=== PATIENT | female | born 1985 | race Caucasian/White ===

== ENCOUNTER → 2020-04-19 08:43 | Outpatient (BNVA) | payer BC, SELFPAY | PROVIDERS: Family Provider Family Medicine; Visit Provider Nurse Practitioner Family | DX: Z02.89 Encounter for other administrative examinations (principal) | CPT/HCPCS: 80061; 82951 ==

== ENCOUNTER → 2022-05-28 16:04 | Outpatient (BNVA) | payer OTHER, SELFPAY | PROVIDERS: Family Provider Family Medicine; PCP Nurse Practitioner Family; Visit Provider Nurse Practitioner Family | DX: Z13.1 Encounter for screening for diabetes mellitus (principal); E78.5 Hyperlipidemia, unspecified; Z00.00 Encounter for general adult medical examination without abnormal findings | CPT/HCPCS: 80053; 80061 ==

== ENCOUNTER 2022-12-05 10:41 | Outpatient (CLI) | payer OTHER, SELFPAY ==
--- NOTE | 2022-12-05 10:50 | XR_ITS ---
WS: [id number] EXAMINATION: XR chest 2V* [id number] REASON FOR EXAM: R05.9 - Cough, unspecified COMPARISON: None available. ORDER DATE: 12/05/2022 11:01 AM FINDINGS: The lungs are clear of infiltrate. The cardiac and mediastinal outlines are unremarkable. There ar e no significant pleural effusions . No significant abnormalities are noted in the spine or remainder of the bony thorax. XR/XR chest 2V* [id number] IMPRESSION: NO ACUTE PULMONARY CHANGE.
== END 2022-12-05 10:42 | disposition home or self-care (01) ==
LOC: RAD 10:50
PROVIDERS: PCP Nurse Practitioner Family; Visit Provider Nurse Practitioner Family
DX: R05.9 Cough, unspecified (principal); R53.83 Other fatigue; R03.0 Elevated blood-pressure reading, without diagnosis of hypertension
CPT/HCPCS: 71046; 80053; 80061; 84439; 84443; 84481; 85025

== ENCOUNTER 2023-01-06 13:14 | Outpatient (CLI) | payer OTHER, SELFPAY ==
--- NOTE | 2023-01-06 13:15 | US_ITS ---
WS: [id number] THYROID ULTRASOUND HISTORY: Abnormal blood work. COMPARISON: None available. Right lobe: 0.9 cm x 1.3 cm x 4.6 cm (w x ap x l). Volume: 2.7 cm3. Normal size and echotexture. No significant are dominant nodules are present. Left lobe: 1.4 cm x 1.2 cm x 4.6 cm (w x ap x l). Volume: 3.9 cm3. Normal size and echotexture. No significant or dominant nodules are present. Isthmus: 0.3 cm. Solid nodule with a few cystic components measures 3.0 x 0.9 cm. US/US thyroid [id number] IMPRESSION: 1. Predominantly solid isthmus nodule. Nodule measures 2.0 x 0.9 cm. Due to it s size consider fine-needle aspiration by ultrasound. 2. Otherwise negative.
== END 2023-01-06 13:15 | disposition home or self-care (01) ==
LOC: RAD 13:18
PROVIDERS: PCP Nurse Practitioner Family; Visit Provider Nurse Practitioner Family
DX: R79.89 Other specified abnormal findings of blood chemistry (principal)
CPT/HCPCS: 76536

== ENCOUNTER 2023-07-31 23:29 | Emergency (ER) | payer OTHER, MEDICAID, SELFPAY ==
[2023-07-31 23:38] VITALS: BP 160/117; PULSE 93; RESP 16; TEMP 36.9; O2SAT 100
--- NOTE | 2023-07-31 23:46 | ED_ITS ---
Documented by User: [email or web address] Loredo 08/01/23 00:59 HPI - Back Pain/Injury General: Chief Complaint: Back Pain/Injury Stated Complaint: side/back pain Time Seen by Provider: 07/31/23 23:30 History of Present Illness: Patient is a 37-year-old female with no significant past medical history who presents to the emergency department for evaluation of right flank pain. Patient reports that her symptoms started this morning upon awakening and has continued to progress since onset. Patient reports that her flank pain radiates into her abdomen. She currently rates her pain as a 6 out of 10 in severity that she describes as a aching sensation. She denies any trauma or event that could have elicited her symptoms. Patient states she is currently on her menstrual cycle. She denies history of nephrolithiasis. She denies fever, chills, dysuria, hematuria, constipation, diarrhea, nausea, vomiting, chest pain, shortness of breath, palpitations, lightheadedness, dizziness, cough, congestion, or any other associated symptoms. No other complaints at this time. Associated symptoms: Reports abdominal pain; Deny chills, dysuria, fever(s), hematuria, nausea or vomiting Review of Systems General: Reports: 10 or more systems reviewed and unremarkable except in HPI and below Const: Denies: fever(s), chills or body aches Eyes: Denies: change in vision, blurry vision, eye discharge or eye redness ENMT: Reports: odynophagia; Denies: throat pain, ear or mastoid pain, ear discharge, nasal discharge or nasal congestion Card: Denies: chest pain or palpitations Resp: Denies: dyspnea, productive cough, non-productive cough, wheezing or stridor GI: Reports: abdominal pain; Denies: nausea, vomiting, diarrhea or constipation : Reports: flank pain; Denies: dysuria or hematuria Musc: Denies: neck pain or extremity pain Skin/Breast: Denies: rash Neuro: Denies: headache(s) or numbness in extremities PFSH ED PFSH: Surgical History Hx of section Social History Smoking and tobacco/nicotine status: current every day tobacco/nicotine user ci garettes Packs smoked per day: 0.5 Alcohol intake: never Substance/Drug Use: never Adopted: No Caregiver/support person: No Lives independently: Yes Household members: spouse and children Housing: House Marital status: Current occupational status: employed Do you think of yourself as: Straight/Heterosexual Current gender identity: Female Female Reproductive History: Date of last menstrual period: 07/31/23 Physical Exam Const: COMMON NORMALS: no acute distress, average body habitus, patient oriented x3 and alert HENMT: COMMON NORMALS: normocephalic, atraumatic, moist oral mucous membranes and oropharynx normal HEAD & SCALP: normocephalic and atraumatic Eye: COMMON NORMALS: Equal, round and reactive pupils present, EOMs intact bilaterally and conjunctivae normal CONJUNCTIVA: Yes conjunctivae normal PUPIL: Yes Equal, round and reactive pupils present Neck/C-Spine: COMMON NORMALS: full ROM and no JVD Chest: COMMONS NORMALS: normal inspection of the chest Resp: COMMON NORMALS: normal respiratory effort, No retractions, No use of accessory muscles and clear to auscultation bilaterally AUSCULTATION: clear to auscultation bilaterally Cardio: COMMON NORMALS: no JVD, regular rate, regular rhythm, No gallops present (Cardio), No clicks present (Cardio), No murmurs present (Cardio) and No rub (Cardio) RATE: regular rate RHYTHM: regular rhythm GI: OTHER: Mild right upper quadrant tenderness noted to palpation. No McBurney's point tenderness, Rovsing sign, or peritoneal signs noted. No evidence of rebound tenderness. Normoactive bowel sounds in all 4 quadrants. : OTHER: Right CVA tenderness noted. Back/Pelvis: OTHER: No midline vertebral tenderness is noted to the thoracic or lumbar spine. No bony abnormalities or step-offs noted. Extremity: OTHER: Patient has full passive and active range of motion in the bilateral upper and lower extremities. Neuro: COMMON NORMALS: patient oriented x3 SENSORIUM/ORIENTATION: Yes alert OTHER: Sensation intact to the bilateral upper and lower extremities. Course Vital Signs: Vital signs: Vital Signs Temperature 98.4 F 07/31/23 23:38 Pulse Rate 63 08/01/23 01:00 Respiratory Rate 16 07/31/23 23:38 Blood Pressure 145/80 08/01/23 01:00 Pulse Oximetry 100 08/01/23 01:00 Oxygen Delivery Me thod Room Air 08/01/23 01:00 MDM - Back Pain/Injury Medical Decision Making Patient is a 37-year-old female with no significant past medical history who presents to the emergency department for evaluation of right flank pain. On physical examination patient is nontoxic and in no acute distress. Vital signs remained stable throughout the ED course. Patient is afebrile. CBC showed no evidence of leukocytosis. CMP and lipase unremarkable. CT of the abdomen and pelvis without contrast currently pending. Urinalysis currently pending. At this point time plan of care was passed over to my colleague Dr. Kuhn in the emergency department. Differential diagnosis includes but is not limited to pyelonephritis, acute cystitis, appendicitis, nephrolithiasis, cholecystitis, choledocholithiasis, ascending cholangitis Labs 07/31/23 23:55 07/31/23 23:55 Radiology Impressions Abdomen/Pelvis CT 07/31/23 23:53 IMPRESSION: 1. No bowel obstruction or inflammatory process associated with the bowel. 2. No free air or significant free fluid in the abdomen or pelvis. 3. The appendix images normally. 4. No hydronephrosis or renal calculus. No stone in the bladder. Phlebolith in the right pelvis Laboratory Results WBC 9.95 10^3/uL (3.29-11.43) 07/31/23 23:55 RBC 5.16 10^6/uL (3.85-5.65) 07/31/23 23:55 Hgb 15.20 g/dL (11.27-16.99) 07/31/23 23:55 Hct 44.4 % (36-47) 07/31/23 23:55 MCV 86.0 fl (85-98) 07/31/23 23:55 MCH 29.5 pg (27-33) 07/31/23 23:55 MCHC 34.2 g/dL (30-55) 07/31/23 23:55 RDW 12.3 % (12.1-15.1) 07/31/23 23:55 Plt Count 252 10^3/cmm (157-399) 07/31/23 23:55 MPV 10.6 fL (7.4-10.4) H 07/31/23 23:55 Neut % (Auto) 53.5 % 07/31/23 23:55 Lymph % (Auto) 39.8 % 07/31/23 23:55 [place] % (Auto) 4.5 % 07/31/23 23:55 Eos % (Auto) 1.5 % 07/31/23 23:55 Baso % (Auto) 0.5 % 07/31/23 23:55 Neut # (Auto) 5.32 10^3/uL (1.8-7.7) 07/31/23 23:55 Lymph # (Auto) 4.0 10^3/uL (0.8-4.8) 07/31/23 23:55 [place] # (Auto) 0.5 10^3/uL (0.2-0.9) 07/31/23 23:55 Eos # (Auto) 0.2 10^3/uL (0.0-0.8) 07/31/23 23:55 Baso # (Auto) 0.1 10^3/uL (0.0-0.1) 07/31/23 23:55 Nucleated RBC % (auto) 0 % 07/31/23 23:55 Nucleated RBCs # 0.0 /100WBC 07/31/23 23:55 Sodium 140 mmol/L (136-145) 07/31/23 23:55 Potassium 3.7 mmol/L (3.5-5.1) 07/31/23 23:55 Chloride 105 mmol/L (98-107) 07/31/23 23:55 Carbon Dioxide 24 mmol/L (22-29) 07/31/23 23:55 Anion Gap 14.7 (5-19) 07/31/23 23:55 BUN 12 mg/dL (6-20) 07/31/23 23:55 Creatinine 0.9 mg/dL (0.5-0.9) 07/31/23 23:55 GFR Calculation 70.8 mL/min (90-130) L 07/31/23 23:55 Glucose 108 mg/dL (65-115) 07/31/23 23:55 Calculated Osmolality 290 mOsm/kg (285-295) 07/31/23 23:55 Calcium 9.5 mg/dL (8.5-10.5) 07/31/23 23:55 Total Bilirubin 0.3 mg/dL (0.15-1.2) 07/31/23 23:55 AST 15 U/L (0-32) 07/31/23 23:55 ALT 14 U/L (0-33) 07/31/23 23:55 Alkaline Phosphatase 53 U/L (35-105) 07/31/23 23:55 Total Protein 7.6 g/dL (6.6-8.7) 07/31/23 23:55 Albumin 4.5 g/dL (3.5-5.2) 07/31/23 23:55 Globulin 3.1 g/dL (1.3-4.6) 07/31/23 23:55 Lipase 38 U/L (13-60) 07/31/23 23:55 HCG, Qual Negative (Negative) 07/31/23 23:40 Urine Color Yellow (Yellow) 08/01/23 00:00 Urine Appearance Clear (CLEAR) 08/01/23 00:00 Urine pH 7 (5-7) 08/01/23 00:00 Ur Specific [place] 1.000 (1.005-1.030) L 08/01/23 00:00 Urine Protein Neg (Negative) 08/01/23 00:00 Urine Glucose (UA) Norm (Normal) 08/01/23 00:00 Urine Ketones Negative (Negative) 08/01/23 00:00 Urine Blood 3+ (Negative) H 08/01/23 00:00 Urine Nitrate Negative (Negative) 08/01/23 00:00 Urine Bilirubin Neg (Negative) 08/01/23 00:00 Urine Urobilinogen Neg mg/dL (Negative) 08/01/23 00:00 Ur Leukocyte Esterase Negative (Negative) 08/01/23 00:00 Urine RBC None /hpf (0-2) 08/01/23 00:00 Urine WBC None /hpf (0-5) 08/01/23 00:00 Ur Squamous Epith Cells 0-4 /hpf (0-5) H 08/01/23 00:00 Amorphous Sediment Not Reportable 08/01/23 00:00 Urine Bacteria None /hpf (NONE) 08/01/23 00:00 XR interpretation done by ED provider, pending radiology final review Discharge Plan Discharge Patient Disposition: Home Clinical Impression: Renal colic Condition: Stable Prescriptions: New ketorolac 10 mg tablet 10 mg PO TID PRN (Reason: pain) Qty: 10 0RF ondansetron 4 mg film 4 mg PO DAILY PRN (Reason: nausea and vomiting) Qty: 10 0RF No Action albuterol sulfate 2.5 mg /3 mL (0.083 %) solution for nebulization 2.5 mg inhalation QID PRN (Reason: shortness of breath or wheezing) Qty: 180 0RF montelukast 10 mg tablet See Rx Instructions .ROUTE .COMPLEX Qty: 30 3RF Dose Instruction: TAKE 1 TABLET BY MOUTH DAILY Rx Instructions: TAKE 1 TABLET BY MOUTH DAILY lisinopril 5 mg tablet See Rx Instructions .ROUTE .COMPLEX Qty: 60 0RF Dose Instruction: TAKE 1 TABLET BY MOUTH TWICE DAILY Rx Instructions: TAKE 1 TABLET BY MOUTH TWICE DAILY Discharge Orders: Discharge ED (Routine); Ordered 08/01/23 Ordered By: Jose Kuhn Referrals: Randi Curtis, PROGRAMMING DEVELOPMENT PROJECT MANAGER [Primary Care Provider] - 1-3 days Patient Instructions: Renal Colic (ED), Abdominal Pain (ED), Opioid Safety, Pain Management Activity Restrictions/Additional Instructions: Your pain was most likely from a kidney stone that is passed. Pain should resolve rather quickly. Return for fever, vomiting liquids or medications, worsening pain despite treatment, other concerning symptoms. Coding Level of Care Code ED Ironworker Machine Operator for Chg Fwd Documented by User: Jose Kuhn DO 08/01/23 01:25 HPI - Back Pain/Injury General: Chief Complaint: Back Pain/Injury Stated Complaint: side/back pain Time Seen by Provider: 07/31/23 23:30 PFSH ED PFSH: Surgical History Hx of section Social History Smoking and tobacco/nicotine status: current every day tobacco/nicotine user cigarettes Packs smoked per day: 0.5 Alcohol intake: never Substance/Drug Use: never Adopted: No Caregiver/support person: No Lives independently: Yes Household members: spouse and children Housing: House Marital status: Current occupational status: employed Do you think of yourself as: Straight/Heterosexual Current gender identity: Female Course Vital Signs: Vital signs: Vital Signs Temperature 98.4 F 07/31/23 23:38 Pulse Rate 63 08/01/23 01:00 Respiratory Rate 16 07/31/23 23:38 Blood Pressure 145/80 08/01/23 01:00 Pulse Oximetry 100 08/01/23 01:00 Oxygen Delivery Me thod Room Air 08/01/23 01:00 MDM - Back Pain/Injury Medical Decision Making Patient is a 37-year-old female with no significant past medical history who presents to the emergency department for evaluation of right flank pain. On physical examination patient is nontoxic and in no acute distress. Vital signs remained stable throughout the ED course. Patient is afebrile. CBC showed no evidence of leukocytosis. CMP and lipase unremarkable. CT of the abdomen and pelvis without contrast currently pending. Urinalysis currently pending. At this point time plan of care was passed over to my colleague Dr. Kuhn in the emergency department. 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 I agree with his history, evaluation, and treatment. CBC is normal. BMP is normal. Urinalysis shows 3+ blood, but no RBCs on micro. CT shows no hydronephrosis. No definite stone in the bladder. The appendix is normal. This could be and likely is a passed stone given her pain distribution. She will be allowed discharge. Labs 07/31/23 23:55 07/31/23 23:55 Radiology Impressions Abdomen/Pelvis CT 07/31/23 23:53 IMPRESSION: 1. No bowel obstruction or inflammatory process associated with the bowel. 2. No free air or significant free fluid in the abdomen or pelvis. 3. The appendix images normally. 4. No hydronephrosis or renal calculus. No stone in the bladder. Phlebolith in the right pelvis Laboratory Results WBC 9.95 10^3/uL (3.29-11.43) 07/31/23 23:55 RBC 5.16 10^6/uL (3.85-5.65) 07/31/23 23:55 Hgb 15.20 g/dL (11.27-16.99) 07/31/23 23:55 Hct 44.4 % (36-47) 07/31/23 23:55 MCV 86.0 fl (85-98) 07/31/23 23:55 MCH 29.5 pg (27-33) 07/31/23 23:55 MCHC 34.2 g/dL (30-55) 07/31/23 23:55 RDW 12.3 % (12.1-15.1) 07/31/23 23:55 Plt Count 252 10^3/cmm (157-399) 07/31/23 23:55 MPV 10.6 fL (7.4-10.4) H 07/31/23 23:55 Neut % (Auto) 53.5 % 07/31/23 23:55 Lymph % (Auto) 39.8 % 07/31/23 23:55 [place] % (Auto) 4.5 % 07/31/23 23:55 Eos % (Auto) 1.5 % 07/31/23 23:55 Baso % (Auto) 0.5 % 07/31/23 23:55 Neut # (Auto) 5.32 10^3/uL (1.8-7.7) 07/31/23 23:55 Lymph # (Auto) 4.0 10^3/uL (0.8-4.8) 07/31/23 23:55 [place] # (Auto) 0.5 10^3/uL (0.2-0.9) 07/31/23 23:55 Eos # (Auto) 0.2 10^3/uL (0.0-0.8) 07/31/23 23:55 Baso # (Auto) 0.1 10^3/uL (0.0-0.1) 07/31/23 23:55 Nucleated RBC % (auto) 0 % 07/31/23 23:55 Nucleated RBCs # 0.0 /100WBC 07/31/23 23:55 Sodium 140 mmol/L (136-145) 07/31/23 23:55 Potassium 3.7 mmol/L (3.5-5.1) 07/31/23 23:55 Chloride 105 mmol/L (98-107) 07/31/23 23:55 Carbon Dioxide 24 mmol/L (22-29) 07/31/23 23:55 Anion Gap 14.7 (5-19) 07/31/23 23:55 BUN 12 mg/dL (6-20) 07/31/23 23:55 Creatinine 0.9 mg/dL (0.5-0.9) 07/31/23 23:55 GFR Calculation 70.8 mL/min (90-130) L 07/31/23 23:55 Glucose 108 mg/dL (65-115) 07/31/23 23:55 Calculated Osmolality 290 mOsm/kg (285-295) 07/31/23 23:55 Calcium 9.5 mg/dL (8.5-10.5) 07/31/23 23:55 Total Bilirubin 0.3 mg/dL (0.15-1.2) 07/31/23 23:55 AST 15 U/L (0-32) 07/31/23 23:55 ALT 14 U/L (0-33) 07/31/23 23:55 Alkaline Phosphatase 53 U/L (35-105) 07/31/23 23:55 Total Protein 7.6 g/dL (6.6-8.7) 07/31/23 23:55 Albumin 4.5 g/dL (3.5-5.2) 07/31/23 23:55 Globulin 3.1 g/dL (1.3-4.6) 07/31/23 23:55 Lipase 38 U/L (13-60) 07/31/23 23:55 HCG, Qual Negative (Negative) 07/31/23 23:40 Urine Color Yellow (Yellow) 08/01/23 00:00 Urine Appearance Clear (CLEAR) 08/01/23 00:00 Urine pH 7 (5-7) 08/01/23 00:00 Ur Specific [place] 1.000 (1.005-1.030) L 08/01/23 00:00 Urine Protein Neg (Negative) 08/01/23 00:00 Urine Glucose (UA) Norm (Normal) 08/01/23 00:00 Urine Ketones Negative (Negative) 08/01/23 00:00 Urine Blood 3+ (Negative) H 08/01/23 00:00 Urine Nitrate Negative (Negative) 08/01/23 00:00 Urine Bilirubin Neg (Negative) 08/01/23 00:00 Urine Urobilinogen Neg mg/dL (Negative) 08/01/23 00:00 Ur Leukocyte Esterase Negative (Negative) 08/01/23 00:00 Urine RBC None /hpf (0-2) 08/01/23 00:00 Urine WBC None /hpf (0-5) 08/01/23 00:00 Ur Squamous Epith Cells 0-4 /hpf (0-5) H 08/01/23 00:00 Amorphous Sediment Not Reportable 08/01/23 00:00 Urine Bacteria None /hpf (NONE) 08/01/23 00:00 Discharge Plan Discharge Patient Disposition: Home Clinical Impression: Renal colic Condition: Stable Prescriptions: New ketorolac 10 mg tablet 10 mg PO TID PRN (Reason: pain) Qty: 10 0RF ondansetron 4 mg film 4 mg PO DAILY PRN (Reason: nausea and vomiting) Qty: 10 0RF No Action albuterol sulfate 2.5 mg /3 mL (0.083 %) solution for nebulization 2.5 mg inhalation QID PRN (Reason: shortness of breath or wheezing) Qty: 180 0RF montelukast 10 mg tablet See Rx Instructions .ROUTE .COMPLEX Qty: 30 3RF Dose Instruction: TAKE 1 TABLET BY MOUTH DAILY Rx Instructions: TAKE 1 TABLET BY MOUTH DAILY lisinopril 5 mg tablet See Rx Instructions .ROUTE .COMPLEX Qty: 60 0RF Dose Instruction: TAKE 1 TABLET BY MOUTH TWICE DAILY Rx Instructions: TAKE 1 TABLET BY MOUTH TWICE DAILY Discharge Orders: Discharge ED (Routine); Ordered 08/01/23 Ordered By: Jose Kuhn Referrals: Randi Curtis, PROGRAMMING DEVELOPMENT PROJECT MANAGER [Primary Care Provider] - 1-3 days Patient Instructions: Renal Colic (ED), Abdominal Pain (ED), Opioid Safety, Pain Management Activity Restrictions/Additional Instructions: Your pain was most likely from a kidney stone that is passed. Pain should resolve rather quickly. Return for fever, vomiting liquids or medications, worsening pain despite treatment, other concerning symptoms. Coding Level of Care Code ED Ironworker Machine Operator for Sayda Payne
--- NOTE | 2023-07-31 23:53 | CTR_ITS ---
PROCEDURE INFORMATION: Exam: CT Abdomen And Pelvis Without Contrast Exam date and time: 08/01/2023 12:33 AM Age: 37 years old Clinical indication: Abdominal pain; Right; Prior surgery; Surgery date: 6+ months; Surgery type: Csection; Patient HX: C/O RT flank pain; Additional info: Right flank pain TECHNIQUE: Imaging protocol: Computed tomography of the abdomen and pelvis without contrast. Radiation optimization: All CT scans at this facility use at least one of these dose optimization techniques: automated exposure control; mA and/or kV adjustment per patient size (includes targeted exams where dose is matched to clinical indication); or iterative reconstruction. REPORTING DATA: Count of CT and Cardiac NM exams in prior 12 months: This patient has received 0 known CTs and 0 known cardiac nuclear medicine studies in the 12 months prior to the current study. COMPARISON: CR XR chest 2V* [id number] 12/05/2022 11:04 AM RADIATION DOSE METRICS: Total DLP (mGy-cm): 798.53 FINDINGS: Liver: The liver is diffusely low in attenuation consistent with hepatic steatosis. Gallbladder and bile ducts: Normal. No calcified stones. No ductal dilation. Pancreas: Normal. No ductal dilation. Spleen: Normal. No splenomegaly. Adrenal glands: Normal. No mass. Kidneys and ureters: Normal. No hydronephrosis. Stomach and bowel: Unremarkable. No obstruction. No mucosal thickening. Appendix: No evidence of appendicitis. Intraperitoneal space: Unremarkable. No free air. No significant fluid collection. Vasculature: Unremarkable. No abdominal aortic aneurysm. Lymph nodes: Unremarkable. No enlarged lymph nodes. Urinary bladder: Unremarkable as visualized. Reproductive: Unremarkable as visualized. Bones/joints: Unremarkable. No acute fracture. Soft tissues: Unremarkable. CT/CT kidney stone [id number] IMPRESSION: 1. No bowel obstruction or inflammatory process associated with the bowel. 2. No free air or significant free fluid in the abdomen or pelvis. 3. The appendix images normally. 4. No hydronephrosis or renal calculus. No stone in the bladder. Phlebolith in the right pelvis
[2023-08-01 00:06] LABS: Basophils # 0.1 10^3/uL (0.0-0.1); Basophils % 0.5 %; Eosinophils # 0.2 10^3/uL (0.0-0.8); Eosinophils % 1.5 %; Hematocrit 44.4 % (36-47); Lymphocytes % 39.8 %; Mean Corpuscular HGB Conc 34.2 g/dL (30-55); Mean Corpuscular Hemoglobin 29.5 pg (27-33); Mean Platelet Volume 10.6 fL (7.4-10.4); Monocytes # 0.5 10^3/uL (0.2-0.9); Monocytes % 4.5 %; Neutrophils # 5.32 10^3/uL (1.8-7.7); Neutrophils % 53.5 %; Nucleated Red Blood Cells % 0 %; Platelet Count 252 10^3/cmm (157-399); Red Blood Count 5.16 10^6/uL (3.85-5.65); Red Cell Distribution Width 12.3 % (12.1-15.1); White Blood Count 9.95 10^3/uL (3.29-11.43)
[2023-08-01 00:09] LABS: HCG Qualitative Urine. Negative (Negative)
[2023-08-01] MEDS: sodium chloride 0.9% 1,000 ML 999 ML IV (00:13)
[2023-08-01 00:23] LABS: Alanine Aminotransferase 14 U/L (0-33); Albumin Level 4.5 g/dL (3.5-5.2); Alkaline Phosphatase 53 U/L (35-105); Anion Gap 14.7 (5-19); Aspartate Amino Transferase 15 U/L (0-32); Blood Urea Nitrogen 12 mg/dL (6-20); Calcium 9.5 mg/dL (8.5-10.5); Carbon Dioxide 24 mmol/L (22-29); Chloride 105 mmol/L (98-107); Globulin 3.1 g/dL (1.3-4.6); Glomerular Filtration Rate 70.8 mL/min (90-130); Glucose 108 mg/dL (65-115); Lipase 38 U/L (13-60); Osmolality Calculated 290 mOsm/kg (285-295); Potassium 3.7 mmol/L (3.5-5.1); Sodium 140 mmol/L (136-145); Total Bilirubin 0.3 mg/dL (0.15-1.2); Total Protein 7.6 g/dL (6.6-8.7)
[2023-08-01 01:00] VITALS: BP 145/80; PULSE 63; O2SAT 100
[2023-08-01 01:02] LABS: Urine Appearance Clear (CLEAR); Urine Color Yellow (Yellow); pH Urine 7 (5-7)
[2023-08-01 01:03] LABS: Add Urine Culture? No; Add Urine Microscopic? YES; Bilirubin Urine Neg (Negative); Blood Urine 3+ (Negative); Glucose Urine UA Norm (Normal); Ketones Urine Negative (Negative); Leukocyte Esterase Urine Negative (Negative); Nitrate Urine Negative (Negative); Protein Urine Neg (Negative); Squamous Epithelial Cell Urine 0-4 /hpf (0-5); Urobilinogen Urine Neg (Negative)
[2023-08-01 01:23] VITALS: BP 145/108; PULSE 67; O2SAT 100
== END 2023-08-01 01:23 | disposition home or self-care (01) ==
PROVIDERS: Physician Assistant; Emergency Provider Emergency Medicine; PCP Registered Nurse
DX: N23 Unspecified renal colic (principal); I87.8 Other specified disorders of veins; F17.210 Nicotine dependence, cigarettes, uncomplicated
CPT/HCPCS: 74176; 80053; 81001; 81025; 83690; 85025; 96374; 99285; J7030

== ENCOUNTER → 2024-07-04 11:49 | Outpatient (BNVA) | payer OTHER, MEDICAID, SELFPAY | PROVIDERS: PCP Registered Nurse; Visit Provider Nurse Practitioner Family | DX: I10 Essential (primary) hypertension (principal) | CPT/HCPCS: 80053 ==

== ENCOUNTER → 2024-08-29 08:22 | Outpatient (BNVA) | payer OTHER, MEDICAID, SELFPAY | PROVIDERS: PCP Registered Nurse; Visit Provider Nurse Practitioner Family | DX: E04.1 Nontoxic single thyroid nodule (principal) | CPT/HCPCS: 84439; 84443; 84481 ==

== ENCOUNTER → 2025-06-12 08:26 | Outpatient (BNVA) | payer OTHER, MEDICAID, SELFPAY | PROVIDERS: PCP Nurse Practitioner Family; Visit Provider Nurse Practitioner Family | DX: I10 Essential (primary) hypertension (principal); R79.89 Other specified abnormal findings of blood chemistry | CPT/HCPCS: 80053; 80061; 84439; 84443; 84481 ==

== ENCOUNTER → 2025-06-19 08:13 | Outpatient (BNVA) | payer OTHER, MEDICAID, SELFPAY | PROVIDERS: PCP Nurse Practitioner Family; Visit Provider Nurse Practitioner Family | DX: R73.09 Other abnormal glucose (principal) | CPT/HCPCS: 83036 ==